=== PATIENT | female | born 1940 | race Caucasian/White ===

== ENCOUNTER → 2021-11-09 | Outpatient (CLI) | payer MEDICARE ==
[~2021-11-09] MED LIST: AUGMENTIN 875-1 EACH PO; FISH OIL CONCE1 EAC1 PO; GLUCOSAMINE H1500 MG PO; MAGNESIUM250 M1 PO; MECLIZINE HCL25 MG PO; MULTIVITAMINS1 EAC1 PO; ZITHROMAX500 MG PO
== END ==
LOC: EXRD 10:19
DX: M54.50 Low back pain, unspecified (principal); G89.29 Other chronic pain; M54.2 Cervicalgia; M25.551 Pain in right hip; M25.552 Pain in left hip; M41.85 Other forms of scoliosis, thoracolumbar region
CPT/HCPCS: 72080